=== PATIENT | male | born 1935 | race Caucasian/White ===

== ENCOUNTER 2017-02-12 16:24 | Inpatient (IN) | payer OTHER ==
[~2017-02-12] VITALS: Ht 182.9 cm; Wt 81.6 kg
[2017-02-12 16:30] VITALS: BP 113/48
[2017-02-12] MEDS ORDERED: NACL 0.9% 500 ML IV ONE (16:40)
--- NOTE | 2017-02-12 16:45 | NUR ---
[facility] PATIENT PRESENTS TO ED WITH SOB . [facility] BEING [facility] [place] [facility] DEN[place] PATIENT FOR 02 SAT BEING TOO LOW, [facility] TRIED BRINGING PATIENT BACK TO [place] BUT DENIED THERE TOO FOR 02 BEING TOO LOW. [facility] BROUGHT PATIENT TO ED. DENIES N/V/D; SKIN IS PINK/WARM/DRY; AAOX3 WITH EVEN AND UNSTEADY GAIT; LUNGS DIMINISHED BL; HR EVEN AND REGULAR; PT DENIES ANY FEVER, CP, SOB, OR COUGH AT THIS TIME; PATIENT STATES PAIN OF 2/10 AT THIS TIME; VSS; PATIENT POSITIONED FOR COMFORT; HOB ELEVATED; BEDRAILS UP X2; BED DOWN. ER MD MADE AWARE OF PT STATUS.
--- NOTE | 2017-02-12 17:05 | NUR ---
PATIENT REFUSING ABG PROCEDURE DR. ARMOND WHITLOCK AWARE DAHLIA/RN NOTIFIED
[2017-02-12] MEDS ORDERED: ONDA4TAB IVP (17:35)
[2017-02-12] MEDS ORDERED: ACET-2869 GT (17:35)
[2017-02-12] MEDS ORDERED: FURO-572 IVP (17:35)
[2017-02-12] MEDS ORDERED: ATOR10TA51 GT (17:35)
[2017-02-12] MEDS ORDERED: CITA20TA15 GT (17:35)
[2017-02-12] MEDS ORDERED: LOV40I SUBQ (17:35)
[2017-02-12] MEDS ORDERED: METF850T GT (17:35)
[2017-02-12] MEDS ORDERED: ACET-2619 GT (17:35)
[2017-02-12] MEDS ORDERED: PRIM250T70 GT (17:35)
[2017-02-12] MEDS ORDERED: PIPE1PDS26 IV (17:35)
[2017-02-12] MEDS ORDERED: HYDR2TAB20 IVP (17:35)
[2017-02-12] MEDS ORDERED: CARV3.12 GT (17:35)
[2017-02-12] MEDS ORDERED: FENT50TD45 TD (17:35)
[2017-02-12] MEDS ORDERED: [UNRECOGNIZED DRUG - CODE] IV (17:35)
[2017-02-12] MEDS ORDERED: HYDR2TAB6 IVP (17:35)
[2017-02-12] MEDS ORDERED: LISI30TA6 GT (17:35)
[2017-02-12] MEDS ORDERED: GABA400C GT (17:35)
[2017-02-12] MEDS ORDERED: MIC5 GT (17:35)
[2017-02-12] MEDS ORDERED: CLON-276 GT (17:35)
[2017-02-12] MEDS ORDERED: ALBU3SOL21 IH (17:35)
[2017-02-12] MEDS ORDERED: CLOP75TA55 GT (17:35)
[2017-02-12] MEDS ORDERED: ATI.5 GT (17:35)
[2017-02-12] MEDS ORDERED: SLIDE SUBQ (18:26)
--- NOTE | 2017-02-12 18:45 | NUR ---
PT CURRENTLY RESTING WITH OU CLOSED, NO GRIMACE, NO MOAN---NO ACCESSORY MUSCLE USE NOTED---COOL MIST TO TRACH
--- NOTE | 2017-02-12 18:55 | NUR ---
RECEIVED REPORT FROM ER PER BELA RN, REGARDING PT ADMISSION TO [facility].
--- NOTE | 2017-02-12 19:03 | NUR ---
PT STABLE, TRANSFER TO TELE 116
--- NOTE | 2017-02-12 19:05 | NUR ---
Patient will be admitted to care of DR JUAREZ. Admited to . Will go to room. Belongings list completed. Report to .
[2017-02-12] MEDS ORDERED: NACL 0.9% 1,000 ML IV SCH (19:08)
[2017-02-12] MEDS ORDERED: ACETAMINOPHEN 325 MG TAB PO PRN (19:10)
[2017-02-12] MEDS ORDERED: ONDANSETRON 4 MG/2 ML VIAL IVP PRN (19:10)
[2017-02-12] MEDS ORDERED: HYDROcodone/APAP 5/325 MG 1 TAB TAB PO PRN (19:10)
[2017-02-12] MEDS ORDERED: ALBUTEROL SULFATE/IPRATROPIU 3 ML SOL IH PRN (19:15)
--- NOTE | 2017-02-12 19:19 | NUR ---
1700 INFORMED BY ED THAT PT ENROUTE FROM [facility] TO [facility] AND UPON ARRIVAL AT [facility] PT WAS DENIED ADMISSION DUE TO STATED LOW O2 SAT. [facility] IS AN LTAC AND DOES NOT HAVE AN ED AND REFUSED TO TAKE PT BACK PT ALREADY DISCHARGED FROM THE FACILITY. CALL PLACED TO [facility] [phone] AND SPOKE WITH WENDY IN ADMISSIONS. PER WENDY PT HAD BEEN ACCEPTED TO THE FACILITY FOR ADMISSION BASED ON REPORT FROM [facility] THAT PT HAD TRACH TO [facility] AND WAS ON O2 AT 28% BUT ON ARRIVAL TO THEIR FACILITY PT WAS ON O2 AT 10 LITER FLOW AND THEY COULD NOT ACCOMMODATE A 10 L FLOW RATE, THEREFORE, PT COULD NOT SAFELY BE ADMITTED AND THEY REQUESTED THAT [facility] RETURN PT TO [facility] BUT [facility] INDICATED THEY COULD NOT ACCEPT PT BACK ONCE DISCHARGED SO PT WAS SENT TO [facility]. PER WENDY IF AND WHEN PT'S O2 REQUIREMENT CAN BE LOWERED TO A LEVEL THEY CAN ACCOMMODATE THEY WILL ACCEPT THE PT FOR ADMISSION.
[2017-02-12] MEDS ORDERED: DEXTROSE 50% 50 ML SYR IVP PRN (19:25)
--- NOTE | 2017-02-12 19:25 | NUR ---
RECEIVED REPORT FROM STONE CHAVEZ WHO RECEIVED REPORT FOR THIS PT WHO IM ADMITTING. ADMITTING 81 YEAR OLD MALE PT. PT IS NON VERBAL. PT AOX3. PT HAS A WHITE BOARD TO COMMUNICATE BUT PT IS CONFUSED AT TIMES. HAS NG TUBE PATENT AND INTACT. PT HAS A TRACHEOSTOMY RECEIVING 02 10L FIO2 AT 40%, PT 02 SAT AT 94%. PT HAS A BRICEÑO CATHETER IN PLACE. PT HAS A RIGHT UPPER ARM PICC LINE. PT IS BEDBOUND. PT'S SKIN IS INTACT. SAFETY/FALL RISK MEASURES IN PLACE. ORIENTED PT TO ROOM AND SURROUNDINGS, WILL CONTINUE TO MONITOR PT. WILL CONTINUE TO MONITOR PT. Addendum: 02/12/17 at 2018 by Chary Hernandez RN PT HAS A PACED MAKER.
--- NOTE | 2017-02-12 19:30 | NUR ---
PT HAS A DRESSING DRY AND INTACT ON LEFT ANTERIOR THIGH DUE TO A SURGICAL PROCEDURE ACCORDING TO NOTES ON CHART. PT REFUSED TO LET ME ASSESS WOUND. WILL CONTINUE TO MONITOR PT.
--- NOTE | 2017-02-12 19:40 | NUR ---
PT NON VERBAL, PT COMMUNICATES WRITING THROUGH A WHITE BOARD.
--- NOTE | 2017-02-12 20:30 | NUR ---
PT HAS SCDS ON. WILL CONTINUE TO MONITOR PT.
[2017-02-12] MEDS: BLOOD GLUCOSE MONITORING 1 DEV DEV FS SCH (20:40)
--- NOTE | 2017-02-12 20:41 | NUR ---
INFORMATION SERVICES CONSULTANT AT BEDSIDE.
--- NOTE | 2017-02-12 20:55 | NUR ---
PT REFUSED TO HAVE ULTRASOUND DONE. WILL CONTINUE TO MONITOR PT.
--- NOTE | 2017-02-12 22:00 | NUR ---
PT TURNED/REPOSITIONED. WILL CONTINUE TO MONITOR PT.
--- NOTE | 2017-02-12 22:30 | NUR ---
PT ASKING TO NOTIFY HIS THAT HE IS AT THIS HOSPITAL. CALLED HIS VENUS TO NOTIFY HER AND SHE STATED THAT SHE WAS ALREADY AWARE OF PT BEEN HERE. WILL LET PT KNOW. WILL CONTINUE TO MONITOR PT.
--- NOTE | 2017-02-12 23:02 | NUR ---
PT COMPLAINING OF A HEADACHE PAIN LEVEL 6/10. VS STABLE, WILL MEDICATE ORDERED.
[2017-02-12] MEDS ORDERED: PIPERACILLIN/TAZOBACTAM 3.375 GM VIAL IV ONE (23:04)
[2017-02-12] MEDS: MORPHINE SULFATE 2 MG/ML SYR IVP PRN (23:05)
[2017-02-12] MEDS: PIPER/TAZO 3.375GM/D5W PREMIX 50 ML IV SCH (23:08)
--- NOTE | 2017-02-12 23:18 | NUR ---
0000 ANTIBIOTIC INFUSING AT THIS TIME.
--- NOTE | 2017-02-12 23:30 | NUR ---
LOCK OPERATOR CALLED TO NOTIFY ME THAT PT'S LABS HAVE TO BE CANCELLED BECAUSE PT REFUSED TODAY 02/12/17. CALLED DR. GORDON TO NOTIFY THEM ABUT CANCELLING THEM. AWAITING GANG WORKER.
--- NOTE | 2017-02-12 23:45 | NUR ---
PT TURNED AND REPOSITIONED. PT CHANGED. PT HAS A LARGE BROWN SOFT BOWEL MOVEMENT. WILL CONTINUE TO MONITOR PT.
[2017-02-13] VITALS: BP 139/72
--- NOTE | 2017-02-13 | NUR ---
PT TURNED AND REPOSITIONED. CALL LIGHT WITHIN REACH.
--- NOTE | 2017-02-13 00:10 | NUR ---
PAGED DR. JUAREZ FOR THE SECOND TIME TO NOTIFY HIM THAT X RAY EXAMINER OF AIRCRAFT NEEDS TO HAVE THE LAB ORDERS THAT PT REFUSED CANCELLED. AWAITING CONDITIONING ROOM WORKER BACK.
--- NOTE | 2017-02-13 00:19 | NUR ---
TALKED TO ANAM FROM ER TO ASK FOR PT'S EKG THAT WAS ORDERED IN ER TO HAVE IN PT'S CHART. ANAM STATED THAT SHE WOULD GET BACK TO ME.
--- NOTE | 2017-02-13 00:47 | NUR ---
PAGESha DINERO WHO IS COVERING FOR DR. JUAREZ TO NOTIFY THEM ABOUT CANCELLING LAB ORDERS THAT PT HAS REFUSED EARLIER. AWAITING FISHER GILL NET BACK.
--- NOTE | 2017-02-13 01:00 | NUR ---
TALKED TO DR. 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 WILL CONTINUE TO MONITOR PT. Addendum: 02/13/17 at 0105 by Chary Hernandez RN AWARE THAT PT REFUSED LABS AND BLE ULTRASOUND.
--- NOTE | 2017-02-13 02:00 | NUR ---
PT TURNED AND REPOSITIONED. CALL LIGHT WITHIN REACH.
--- NOTE | 2017-02-13 02:07 | NUR ---
PT COMPLAINING OF HEADACHE 10. VS STABLE, WILL MEDICATE ORDERED.
[2017-02-13] MEDS: MORPHINE SULFATE 2 MG/ML SYR IVP PRN ×6 (02:10→23:22)
--- NOTE | 2017-02-13 03:40 | NUR ---
I TRIED TO CONVINCED PT TO LET ME ASSESS HIS WOUND ON LEFT TIGHT; BUT PT STILL REFUSES. GILDA BAUMAN WITNESSED AT BEDSIDE.
[2017-02-13 04:00] VITALS: BP 140/69
--- NOTE | 2017-02-13 04:00 | NUR ---
PT REFUSED TO BE REPOSITIONED. FOREST SUPERVISOR CRISSY WITNESS AT BEDSIDE.
--- NOTE | 2017-02-13 04:05 | NUR ---
PT RECEIVING BREATHING TREATMENT AT THIS TIME.
--- NOTE | 2017-02-13 04:10 | NUR ---
I PAGED DR. DINERO TO NOTIFY HER THAT PT IS BEEN COMPLAINING OF HEADACHE AND CHAIN PAIN. I TOLD THAT I HAD MEDICATED PT 2 HOURS AGO AND THE PAIN MEDICATION THE PT IS ASKING MORPHINE IS SCHEDULED EVERY FOUR HOURS. SAID SHE WOULD CHANGE THE ORDER TO EVERY THREE HOURS INSTEAD. WILL CONTINUE TO MONITOR PT.
[2017-02-13] MEDS ORDERED: MORPHINE SULFATE 2 MG/ML SYR IVP SCH (04:30)
--- NOTE | 2017-02-13 04:48 | NUR ---
WAITING ON DR. DINERO TO PUT IN ORDERS FOR PAIN MEDICATION. PT STABLE, PT AWARE THAT WE ARE WAITING ON ORDERS.
--- NOTE | 2017-02-13 04:59 | NUR ---
DR. DINERO PUT IN THE WRONG ORDERS, PAGED HER AGAIN. AWAITING FOR DR. MARTINEZ PUT IN RIGHT ORDERS FOR PAIN MED. PT AWARE, PT STABLE AT THIS TIME.
--- NOTE | 2017-02-13 05:07 | NUR ---
STILL WAITING ON DR. DINERO TO PUT IN THE RIGHT ORDERS FOR PAIN MEDICATION. PHARMACY CAN NOT VERIFY WITHOUT HAVING RIGHT FREQUENCY. CHARGE NURSE AWARE. I WAS TOLD I CAN NOT PUT IN THE ORDER MY SELF. HAVE TO WAIT. PT STATES THAT HE ONLY WANTS "PAIN SHOT".
--- NOTE | 2017-02-13 05:26 | NUR ---
STILL WAITING FOR DR. DINERO TO FIX PAIN MED ORDER. PT AWARE. PT WANTS [facility] FOR NOW. WILL CONTINUE TO MONITOR PT.
[2017-02-13] MEDS ORDERED: PIPERACILLIN/TAZOBACTAM 3.375 GM VIAL IV ONE (05:28)
[2017-02-13] MEDS: HYDROcodone/APAP 5/325 MG 1 TAB TAB GT PRN ×2 (05:29→10:33)
[2017-02-13] MEDS: PIPER/TAZO 3.375GM/D5W PREMIX 50 ML IV SCH ×3 (05:33→17:00)
--- NOTE | 2017-02-13 05:51 | NUR ---
PT ASKED TO HAVE HIS SCDS REMOVED. HE STATED HE DID NOT WANT THEM ON.
[2017-02-13] MEDS: BLOOD GLUCOSE MONITORING 1 DEV DEV FS SCH ×4 (06:08→21:04)
--- NOTE | 2017-02-13 06:26 | NUR ---
PT REFUSED TO BE REPOSITIONED/TURNED. SIZING END BANDER GILDA WITNESS AT BEDSIDE.
--- NOTE | 2017-02-13 06:40 | NUR ---
I ASKED PT AGAIN TO LET ME ASSESS HIS DRESSING ON LEFT LEFT LEG AND PT REFUSES. I ALSO TRIED TO PUT ON SCDS BACK; HOWEVER PT REFUSES.
[2017-02-13] MEDS: ALBUTEROL SULFATE/IPRATROPIU 3 ML SOL IH SCH ×5 (07:10→23:38)
--- NOTE | 2017-02-13 07:24 | NUR ---
PT SUCTIONED OBTAINED MODERATE AMOUNT OF THICK PALE YELLOW SECRETIONS,AIRWAY IS PATENT AND TRACH IS SECURE. PT TOLERATED SUCTIONING WELL WITH NO ADVERSE REACTIONS.
--- NOTE | 2017-02-13 07:35 | NUR ---
ENDORSED PT IN STABLE CONDITION TO RN BRITNEY.
--- NOTE | 2017-02-13 07:36 | NUR ---
PT ALERT AND RESPONSIVE, NON VERBAL, WITH TRACH TO O2 AT 40% FIO2, NO SIGNS OF ACUTE DISTRESS. OFFLOAD TO PRESSURE AREAS, TURN AND REPOSITIONED, ELEVATED HOB AT LEAST 30 DEGREES. NO SIGNS OF ANY BOWEL/BLADDER DISCOMFORT, GTUBE INTACT AND PATENT, NO RESIDUAL, BRICEÑO CATHETER INTACT AND NOTED 50ML OF LIGHT LES COLORED URINE. C/O HEAD ACHE /10, TO MEDICATE ORDERED, PLACED ON A COMFORTABLE POSITION. ALL NEEDS ATTENDED, SAFETY PRECAUTIONS MAINTAINED. CALL LIGHT WITHIN REACH.
[2017-02-13 07:48] VITALS: BP 145/76
[2017-02-13] MEDS ORDERED: FUROSEMIDE 40 MG/4 ML VIAL IVP SCH (08:00)
--- NOTE | 2017-02-13 08:00 | NUR ---
PT TURNED AND REPOSITIONED, MOUTH AND TRACH CARE RENDERED. PLACED ON A COMFORTABLE POSITION. CONTINUE TO MONITOR.
[2017-02-13] MEDS: LACTOBACILLUS RHAMNOSUS GG 1 EACH CAP PO SCH (08:11)
[2017-02-13] MEDS: LORazepam 0.5 MG TAB PO PRN (08:11)
[2017-02-13] MEDS ORDERED: ALTEPLASE 2 MG VIAL MC SCH (08:30)
--- NOTE | 2017-02-13 08:52 | NUR ---
PATIENT HAS BEEN SCREENED AND CATEGORIZED MODERATE NUTRITION RISK. PATIENT WILL BE SEEN WITHIN 3-5 DAYS OF ADMISSION. 02/15/17-02/17/[address] Addendum: 02/16/17 at [address] [facility] CONSULT RECEIVED ON 02/15/17-1628 FOR TUBE FEEDING. PATIENT HAS BEEN RE-SCREENED AND CATEGORIZED HIGH NUTRITION RISK. PATIENT WILL BE SEEN WITHIN 1-2 DAYS OF CONSULT. 02/16/17-02/17/17
--- NOTE | 2017-02-13 08:57 | NUR ---
PT REFUSED IMAGING TESTS SCHEDULED TODAY. RISKS AND BENEFITS EXPLAINED. AWARE.
--- NOTE | 2017-02-13 10:00 | NUR ---
UNABLE TO OBTAIN BLOOD RETURN AFTER CATHFLO ADMINISTRATION FROM THE PICC LINE. DR MALAVE AWARE. LAB TO DO VENIPUNCTURE LATER.
--- NOTE | 2017-02-13 10:00 | NUR ---
PT TURNED AND REPOSITIONED, PLACED ON A COMFORTABLE POSITION. CONTINUE TO MONITOR.
[2017-02-13 12:00] VITALS: BP 132/77
--- NOTE | 2017-02-13 12:00 | NUR ---
PT TURNED AND REPOSITIONED, PLACED ON A COMFORTABLE POSITION. CONTINUE TO MONITOR.
--- NOTE | 2017-02-13 12:02 | NUR ---
AEROSOL WATER REPLACED WITH NEW WATER. PT SUCTIONED OBTAINED MODERATE AMOUNT OF THICK YELLOW SECRETIONS,AIRWAY IS PATENT TRACH IS SECURE.
--- NOTE | 2017-02-13 12:18 | NUR ---
ABLE TO OBTAIN BLOOD ON PT'S RIGHT UPPER ARM PICC LINE. SENT TO LAB. AWARE.
[2017-02-13 13:21] LABS: HEMATOCRIT 29.4 % (36-52); HEMOGLOBIN 9.5 g/dL (12.0-18.0); MEAN CORPUSCULAR HEMOGLOBIN 26 pg (27-31); MEAN CORPUSCULAR HGB CONC 32 g/dL (33-37); MEAN CORPUSCULAR VOLUME 80 fL (80-94); PLATELET COUNT (AUTO) 408 K/uL (140-450); WHITE BLOOD COUNT (AUTO) 21.1 K/uL (4.8-10.8)
[2017-02-13 13:42] LABS: BAND % (MANUAL) 4 % (0-8); LYMPHOCYTES % (MANUAL) 28 % (20-46); MONOCYTES % (MANUAL) 8 % (5-12); NEUTROPHILS % (MANUAL) 60 (43-65)
--- NOTE | 2017-02-13 14:00 | NUR ---
PT TURNED AND REPOSITIONED, PLACED ON A COMFORTABLE POSITION. CONTINUE TO MONITOR.
[2017-02-13 14:25] LABS: CALCIUM 9.4 mg/dL (8.5-10.1); CARBON DIOXIDE 34.3 mmol/L (21-32); CHLORIDE 97 mmol/L (98-107); CREATININE 0.8 mg/dL (0.6-1.3); GLUCOSE 116 mg/dL (74-106); POTASSIUM 3.3 mmol/L (3.5-5.1); SODIUM SERUM 138 mmol/L (136-145); UREA NITROGEN, BLOOD 31 mg/dL (7-18)
[2017-02-13 14:29] LABS: MAGNESIUM 1.2 mg/dL (1.8-2.4); PHOSPHORUS 3.9 mg/dL (2.5-4.9)
--- NOTE | 2017-02-13 14:44 | NUR ---
Social Service Note: Per Clarence Cevallos from [facility] , they can accommodate patients up to 5 liters of O2. Per Jesus Manuel from [facility] , they can accommodate patients up to 5 liters of O2. Per RN Graining Press Operator Win from [facility] , they can accommodate patients up to 10 liters of O2. However, he stated they do not have any beds available at this time.
--- NOTE | 2017-02-13 15:00 | NUR ---
MD AWARE OF CURRENT LABS, CBC AND BMP. CONTINUE TO MONITOR.
[2017-02-13 16:00] VITALS: BP 122/71
--- NOTE | 2017-02-13 16:00 | NUR ---
PT TURNED AND REPOSITIONED, PLACED ON A COMFORTABLE POSITION. CONTINUE TO MONITOR.
--- NOTE | 2017-02-13 16:20 | NUR ---
INNER CANNULA REPLACED WITHOUT INCIDENT. AIRWAY IS PATENT, PT SUCTIONED OBTAINED MODERATE AMOUNT OF THICK YELLOW SECRETIONS. PT IS NOT SOB AND NOT IN RESPIRATORY DISTRESS AT THIS TIME. STERILE WATER FOR CA IS AT ADEQUATE LEVEL.
--- NOTE | 2017-02-13 18:00 | NUR ---
PT TURNED AND REPOSITIONED, PLACED ON A COMFORTABLE POSITION. CONTINUE TO MONITOR
--- NOTE | 2017-02-13 18:05 | NUR ---
PT ALERT AND RESPONSIVE, NO SIGNS OF ACUTE DISTRESS. WILL ENDORSE TO ONCOMING DATABASE MANAGEMENT SPECIALIST NURSE FOR CONTINUITY OF CARE.
--- NOTE | 2017-02-13 19:30 | NUR ---
RECEIVED REPORT FROM AM NURSE. PT AOX4, NONVERBAL, ABLE TO COMMUNICATE NEEDS WITH WHITEBOARD AND MARKER. PT C/O PAIN, SEE PAIN ASSESSMENT. WILL MEDICATE ORDERED. NO CP, SOB OR S/S OF ACUTE DISTRESS. T-PIECE IN PLACE AT 10L AND 40% FIO2, SPO2 93% ON CONTINUOUS PULSE OX. WILL MEDICATE ORDERED. GTUBE PLACEMENT VERIFIED, PATENT AND INTACT. BRICEÑO CATH IN PLACE, DRAINING WELL. DRESSING TO LEFT THIGH, CLEAN DRY AND INTACT. PICC TO RIGHT UPPER ARM, ASYMPTOMATIC, PATENT AND INTACT. SALINE LOCKED. DISCUSSED AND REVIEWED PLAN OF CARE WITH PT, PT WRITES "OK" ON WHITEBOARD. SAFETY MEASURES ENSURED. CALL LIGHT WITHIN REACH. WILL CONTINUE TO MONITOR.
[2017-02-13 20:00] VITALS: BP 131/64
--- NOTE | 2017-02-13 20:00 | NUR ---
PT TURNED AND REPOSITIONED, OFFLOAD PRESSURE SITES. PT TOLERATED WELL. WILL CONTINUE TO MONITOR.
--- NOTE | 2017-02-13 20:15 | NUR ---
VS NOTED. TEMP 99.5, COOLING MEASURES AND ICE PACKS ENSURED. ADMINISTERED TYLENOL WITH EDUCATION THROUGH [email or web address]. PT NONVERBAL, WRITES "OK" ON NOTEPAD. PT TOLERATED WELL. BLOOD SUGAR 159, PT NPO, WILL HOLD INSULIN COVERAGE. CONDITION STABLE. SAFETY MEASURES ENSURED. CALL LIGHT WITHIN REACH. WILL CONTINUE TO MONITOR.
[2017-02-13] MEDS: KCL 20 MEQ/WATER INJ PREMIX 100 ML IV SCH ×2 (20:50→22:24)
[2017-02-13] MEDS ORDERED: MAG SULF 2000 MG/WATER PREMIX 50 ML IV SCH (20:50)
--- NOTE | 2017-02-13 20:50 | NUR ---
MADE DR GABRIEL AWARE OF MG 1.2 AND POTASSIUM 3.3, ORDERS PENDING AND WILL CARRY OUT.
--- NOTE | 2017-02-13 21:06 | NUR ---
EXPLAINED THE NEED FOR IV MAGNESIUM AND IV POTASSIUM, PT WRITES ON "OK" ON WHITEBOARD. ADMINISTERED IV MAGNESIUM WITH EDUCATION. IVPB INFUSING WELL. ALL NEEDS MET. CONDITION STABLE. SAFETY MEASURES ENSURED.
--- NOTE | 2017-02-13 22:00 | NUR ---
PT TURNED AND REPOSITIONED, OFFLOAD PRESSURE SITES. PT TOLERATED WELL. WILL CONTINUE TO MONITOR.
--- NOTE | 2017-02-13 22:30 | NUR ---
PT WROTE ON WHITEBOARD, "MY CHEST IS BURNING OR FREEZING." EXPLAINED THAT IV MAGNESIUM MAY FEEL SOME DISCOMFORT. PT REFUSED DESPITE EDUCATION, WROTE ON WHITEBOARD, "STOP." IV MAG STOPPED AND PICC SALINE LOCKED. WILL REASSESS LATER.
--- NOTE | 2017-02-13 23:22 | NUR ---
PT C/O PAIN. SEE PAIN ASSESSMENT. ADMINISTERED PAIN MED WITH EDUCATION. EXPLAINED THE NEED TO CONTINUE IV MAGNESIUM AND NEED FOR IV POTASSIUM REPLACEMENT. PT REFUSED DESPITE EDUCATION , WROTE ON HIS WHITEBOARD, "NO" AND GESTURED WAVING BOTH HIS HANDS. WILL CONTACT .
--- NOTE | 2017-02-13 23:44 | NUR ---
WEANED TO 30% FIO2.
[2017-02-14] VITALS: BP 139/77
--- NOTE | 2017-02-14 | NUR ---
PT TURNED AND REPOSITIONED, OFFLOAD PRESSURE SITES. PT TOLERATED WELL. WILL CONTINUE TO MONITOR.
--- NOTE | 2017-02-14 | NUR ---
PAGED DR GALLARDO, VICE PRESIDENT OF TALENT ACQUISITION FOR DR JUAREZ. MADE MD AWARE OF PT REFUSING IVPB MAG AND IVPB POTASSIUM 20MEQ AND PT'S COMPLAINT OF BURNING/FREEZING WHEN IVPB MAG IS INFUSING. MD INSTRUCTED TO "ADMINISTER THE MAG AT A REALLY SLOW RATE." STATED "IF THE PT STILL REFUSED, WE'LL CHECK THE LABS AGAIN TOMORROW." WILL CARRY OUT INSTRUCTIONS.
--- NOTE | 2017-02-14 00:30 | NUR ---
PT REFUSED IVPB MAG AND IVPB POTASSIUM DESPITE EDUCATION. PT WROTE ON WHITEBOARD, "NO, I WANT TO SLEEP, STOP ASKING." ASKED PT IF WE CAN DO THE ULTRASOUND BLE VENOUS, BLE ARTERIAL, CHEST/MEDIASTINUM IN THE MORNING. PT WROTE, "WE SHALL SEE." CONDITION STABLE. ALL NEEDS MET. SAFETY MEASURES ENSURED. CALL LIGHT WITHIN REACH.
[2017-02-14] MEDS: PIPER/TAZO 3.375GM/D5W PREMIX 50 ML IV SCH ×5 (00:54→23:49)
--- NOTE | 2017-02-14 02:00 | NUR ---
PT TURNED AND REPOSITIONED, OFFLOAD PRESSURE SITES. PT TOLERATED WELL. WILL CONTINUE TO MONITOR.
[2017-02-14] MEDS: MORPHINE SULFATE 2 MG/ML SYR IVP PRN ×7 (02:50→21:41)
--- NOTE | 2017-02-14 02:50 | NUR ---
PT C/O PAIN. SEE PAIN ASSESSMENT. ADMINISTERED PAIN MEDICATION ORDERED. PT TOLERATED WELL. PT COUGHING INTERMITTENTLY, SAT 90%. PT SUCTIONED, SAT 94%. WILL CALL RT FOR SCHEDULED BREATHING TX.
[2017-02-14] MEDS: ALBUTEROL SULFATE/IPRATROPIU 3 ML SOL IH SCH ×6 (03:05→22:40)
[2017-02-14 04:00] VITALS: BP 149/84
--- NOTE | 2017-02-14 04:00 | NUR ---
PT TURNED AND REPOSITIONED, OFFLOAD PRESSURE SITES. PT TOLERATED WELL. WILL CONTINUE TO MONITOR.
[2017-02-14] MEDS: HYDROcodone/APAP 5/325 MG 1 TAB TAB GT PRN ×2 (06:31→06:45)
[2017-02-14] MEDS: BLOOD GLUCOSE MONITORING 1 DEV DEV FS SCH ×4 (06:40→21:41)
[2017-02-14 06:44] LABS: BASOPHILS # (AUTO) 0.1 K/uL (0.00-0.22); BASOPHILS % (AUTO) 0.5 % (0.0-2.0); EOSINOPHILS # (AUTO) 0.2 K/uL (0-0.4); HEMATOCRIT 30.5 % (36-52); HEMOGLOBIN 9.9 g/dL (12.0-18.0); LYMPHOCYTES # (AUTO) 3.2 K/uL (2.0-11.5); LYMPHOCYTES % (AUTO) 21.4 % (20.5-51.1); MEAN CORPUSCULAR HEMOGLOBIN 26 pg (27-31); MEAN CORPUSCULAR HGB CONC 33 g/dL (33-37); MEAN CORPUSCULAR VOLUME 80 fL (80-94); MONOCYTES # (AUTO) 1.3 K/uL (0.8-1.0); MONOCYTES % (AUTO) 8.9 % (1.7-9.3); NEUTROPHILS # (AUTO) 10.2 K/uL (1.8-7.7); NEUTROPHILS % (AUTO) 68.2 % (42.2-75.2); PLATELET COUNT (AUTO) 406 K/uL (140-450); RED BLOOD CELL COUNT(AUTO) 3.81 MIL/uL (4.20-6.10); WHITE BLOOD COUNT (AUTO) 15.1 K/uL (4.8-10.8)
[2017-02-14 06:46] LABS: ANION GAP 10.1 (8-16); CALCIUM 9.5 mg/dL (8.5-10.1); CARBON DIOXIDE 35.7 mmol/L (21-32); CHLORIDE 100 mmol/L (98-107); CREATININE 0.9 mg/dL (0.6-1.3); GLUCOSE 135 mg/dL (74-106); POTASSIUM 3.8 mmol/L (3.5-5.1); SODIUM SERUM 142 mmol/L (136-145); UREA NITROGEN, BLOOD 28 mg/dL (7-18)
[2017-02-14 06:52] LABS: MAGNESIUM 1.7 mg/dL (1.8-2.4); PHOSPHORUS 3.9 mg/dL (2.5-4.9)
--- NOTE | 2017-02-14 07:21 | NUR ---
RCV'D PT ON CA 30%. PT HAS A PORTEX 7 TRACH. TRACH IS IN PLACE AND SECURED. STOMA IS CLEAN. PT IS AWAKE WITH NO SOB OR DISTRESS NOTED. HHN TX GIVEN. WILL CONTINUE TO MONITOR.
--- NOTE | 2017-02-14 07:23 | NUR ---
CONDITION STABLE. ENDORSED PLAN OF CARE TO AM NURSE.
--- NOTE | 2017-02-14 07:24 | NUR ---
PT ALERT AND RESPONSIVE, NON VERBAL, WITH TRACH TO O2 AT 30% FIO2, NO SIGNS OF ACUTE DISTRESS. OFFLOAD TO PRESSURE AREAS, TURN AND REPOSITIONED, ELEVATED HOB AT LEAST 30 DEGREES. NO SIGNS OF ANY BOWEL/BLADDER DISCOMFORT, GTUBE INTACT AND PATENT, NO RESIDUAL, BRICEÑO CATHETER INTACT AND NOTED 75ML OF LIGHT LES COLORED URINE. NO C/O PAIN AT THIS TIME. PLACED ON A COMFORTABLE POSITION. ALL NEEDS ATTENDED, SAFETY PRECAUTIONS MAINTAINED. CALL LIGHT WITHIN REACH.
[2017-02-14 07:49] VITALS: BP 141/74
--- NOTE | 2017-02-14 09:00 | NUR ---
PT TURNED AND REPOSITIONED, MOUTH AND TRACH CARE RENDERED. PLACED ON A COMFORTABLE POSITION. CONTINUE TO MONITOR.
[2017-02-14] MEDS: LACTOBACILLUS RHAMNOSUS GG 1 EACH CAP PO SCH (09:12)
[2017-02-14] MEDS: LORazepam 0.5 MG TAB PO PRN (09:12)
--- NOTE | 2017-02-14 10:00 | NUR ---
PT TURNED AND REPOSITIONED, PLACED ON A COMFORTABLE POSITION. CONTINUE TO MONITOR.
[2017-02-14 11:55] VITALS: BP 143/74
--- NOTE | 2017-02-14 12:00 | NUR ---
PT TURNED AND REPOSITIONED, PLACED ON A COMFORTABLE POSITION. CONTINUE TO MONITOR.
--- NOTE | 2017-02-14 14:00 | NUR ---
PT TURNED AND REPOSITIONED, PLACED ON A COMFORTABLE POSITION. CONTINUE TO MONITOR.
--- NOTE | 2017-02-14 15:00 | NUR ---
PT TURNED AND REPOSITIONED, MOUTH AND TRACH CARE RENDERED. PLACED ON A COMFORTABLE POSITION. CONTINUE TO MONITOR.
[2017-02-14] MEDS: INSULIN LISPRO SLIDING SCALE 100 UNITS/ML VIAL SUBQ PRN ×2 (15:45→21:46)
[2017-02-14 16:00] VITALS: BP 153/69
--- NOTE | 2017-02-14 16:00 | NUR ---
PT RESTING WELL IN BED, GT UBE INTACT AND PATENT NO RESIDUAL. STARTED ON TUBE FEEDING ORDERED NUTR PULMONARE AT 50ML/HR WITH H2O FLUSH 50ML Q6H. PT TOLERATING WELL. CONTINUE TO MONITOR.
--- NOTE | 2017-02-14 16:00 | NUR ---
PT TURNED AND REPOSITIONED, PLACED ON A COMFORTABLE POSITION. CONTINUE TO MONITOR.
--- NOTE | 2017-02-14 17:10 | NUR ---
TRACH CARE DONE WITHOUT INCIDENT. CHANGED PORTEX 6 INNER CANNULA, GAUZE; BREEN. TRACH TIE DIDNT NEED TO BE CHANGED AT THIS TIME. RN BRITNEY AT BEDSIDE. HUMIDIFICATION WATER CHANGED. PT STILL ON 30% CA. WILL CONTINUE TO MONITOR.
--- NOTE | 2017-02-14 18:00 | NUR ---
PT TURNED AND REPOSITIONED, PLACED ON A COMFORTABLE POSITION. CONTINUE TO MONITOR.
--- NOTE | 2017-02-14 18:20 | NUR ---
PT RESTING WELL, NO SIGNS OF ACUTE DISTRESS. WILL ENDORSE TO ONCOMING GROUP DYNAMICS INSTRUCTOR NURSE FOR CONTINUITY OF CARE.
--- NOTE | 2017-02-14 19:43 | NUR ---
RECEIVED BEDSIDE REPORT FROM BRITNEY RN. PATIENT IS AWAKE, ALERT, AND NONVERBAL. PATIENT IS ABLE TO MAKE NEEDS KNOWN BY WRITING ON WHITE BOARD WITH MARKER. PATIENT IS TRACH TO T-PIECE AND RECEIVING HUMIDIFIED OXYGEN AT FIO2 30%. NO SIGNS OF RESPIRATORY DISTRESS OR SOB NOTED. THERE IS RIGHT UPPER ARM SINGLE LUMEN PICC IN PLACE. THERE IS A G-TUBE PRESENT. PATIENT IS RECEIVING NUTREN PULMONARY AT 50 ML/HR. THERE IS A BRICEÑO CATHETER IN PLACE DRAINING TO GRAVITY. SCDS ARE PRESENT, BUT PATIENT REFUSES TO WEAR THEM AT THIS TIME. VITALS ARE WNL. HOB AT 30 DEGREES WITH BED IN LOW POSITION. WILL CONTINUE TO MONITOR PATIENT.
[2017-02-14 20:00] VITALS: BP 150/75
--- NOTE | 2017-02-14 21:35 | NUR ---
GLORIA EXCELLENCE CONSULTANT AND RAMONE RICKA AT BEDSIDE FOR PM CARE. PATIENT REPOSITIONED FOR COMFORT. NO SIGNS OF DISTRESS OR SOB NOTED. CONTINUE TO MONITOR.
--- NOTE | 2017-02-14 21:47 | NUR ---
BLOOD SUGAR IS 202. PATIENT REFUSED 4 UNITS OF HUMALOG FOR INSULIN COVERAGE. WILL CONTINUE TO MONITOR PATIENT.
--- NOTE | 2017-02-14 21:55 | NUR ---
AVTAR KAN, WHO IS NAPHTHALENE OPERATOR FOR DR. JUAREZ. WILL WAIT FOR CALL BACK.
--- NOTE | 2017-02-14 21:58 | NUR ---
SPOKE TO DR. KAN. INFORMED MD THAT PATIENT'S LAST ACCUCHECK IS 202 AND PATIENT REFUSED INSULIN BASED PER SLIDING SCALE. PATIENT WROTE ON HIS PERSONAL WHITE BOARD THAT HIS DIABETES IS MANAGED BY HOME MEDICATIONS. INFORMED DR. KAN SINCE ADMISSION ON 02/12/17, PATIENT'S HOME MEDICATIONS WERE NOT RECONCILED AND CONTINUED HERE IN MST. DR. KAN ASKED WHICH MEDICATIONS PATIENT RECEIVES FOR HX DIABETES AND INFORMED MD THAT PATIENT TAKES GLYBURIDE 5MG GT BIDAC AND METFORMIN HCL 850MG TABLET. DR. KAN STATED HE WILL PUT IN NEW ORDERS FOR MORNING MEDICATION ADMINISTRATION FOR DIABETES MANAGEMENT. WILL ENDORSE TO DAY SHIFT NURSE.
[2017-02-15] VITALS: BP 157/75
--- NOTE | 2017-02-15 | NUR ---
PATIENT RESTING COMFORTABLY IN BED. VITALS ARE STABLE. NO SIGNS OF RESPIRATORY DISTRESS NOTED. HOB AT 30 DEGREES WITH BED IN LOW POSITION. WILL CONTINUE TO MONITOR PATIENT.
[2017-02-15] MEDS: MORPHINE SULFATE 2 MG/ML SYR IVP PRN ×3 (00:48→07:41)
--- NOTE | 2017-02-15 02:00 | NUR ---
ROUNDED ON PATIENT. PATIENT RESTING COMFORTABLY IN BED WITH NO SIGNS OF ACUTE RESPIRATORY DISTRESS NOTED. HOB AT 30 DEGREES WITH BED IN LOW POSITION. WILL CONTINUE TO MONITOR PATIENT.
[2017-02-15] MEDS: ALBUTEROL SULFATE/IPRATROPIU 3 ML SOL IH SCH ×6 (03:00→22:50)
[2017-02-15 04:00] VITALS: BP 146/67
--- NOTE | 2017-02-15 04:00 | NUR ---
VITALS ARE WNL. NO SIGNS OF SOB OR DISTRESS NOTED. HOB AT 30 DEGREES WITH BED IN LOW POSITION. CALL LIGHT WITHIN PATIENT'S REACH. WILL CONTINUE TO MONITOR PATIENT.
[2017-02-15] MEDS: PIPER/TAZO 3.375GM/D5W PREMIX 50 ML IV SCH ×4 (05:13→23:39)
[2017-02-15] MEDS: HYDROcodone/APAP 5/325 MG 1 TAB TAB GT PRN (05:13)
[2017-02-15] MEDS: BLOOD GLUCOSE MONITORING 1 DEV DEV FS SCH ×4 (06:45→21:00)
[2017-02-15] MEDS: INSULIN LISPRO SLIDING SCALE 100 UNITS/ML VIAL SUBQ PRN ×3 (06:45→21:00)
--- NOTE | 2017-02-15 06:46 | NUR ---
PATIENT'S BLOOD SUGAR IS 221. PATIENT REFUSED INSULIN COVERAGE AND WANTS TO TAKE SCHEDULED MEDICATION FOR DIABETES MANAGEMENT. WILL CONTINUE TO MONITOR PATIENT.
[2017-02-15 06:49] LABS: BASOPHILS # (AUTO) 0.1 K/uL (0.00-0.22); BASOPHILS % (AUTO) 0.4 % (0.0-2.0); EOSINOPHILS # (AUTO) 0.2 K/uL (0-0.4); EOSINOPHILS % (AUTO) 1.4 % (0.0-4.0); HEMOGLOBIN 10.2 g/dL (12.0-18.0); LYMPHOCYTES # (AUTO) 2.6 K/uL (2.0-11.5); LYMPHOCYTES % (AUTO) 15.7 % (20.5-51.1); MEAN CORPUSCULAR HEMOGLOBIN 26 pg (27-31); MEAN CORPUSCULAR HGB CONC 33 g/dL (33-37); MEAN CORPUSCULAR VOLUME 80 fL (80-94); MONOCYTES # (AUTO) 1.4 K/uL (0.8-1.0); MONOCYTES % (AUTO) 8.5 % (1.7-9.3); NEUTROPHILS # (AUTO) 12.3 K/uL (1.8-7.7); PLATELET COUNT (AUTO) 426 K/uL (140-450); RED BLOOD CELL COUNT(AUTO) 3.88 MIL/uL (4.20-6.10); RED CELL DISTRIBUTION WIDTH 15.9 % (11.6-13.7); WHITE BLOOD COUNT (AUTO) 16.6 K/uL (4.8-10.8)
--- NOTE | 2017-02-15 06:55 | NUR ---
RCV'D PT ON 30% CA TRACH COLLAR. PT HAS A PORTEX 6 TRACH. TRACH IS IN PLACE AND SECURE. STOMA IS CLEAN. HHN TX GIVEN. NO SOB OR DISTRESS NOTED AT THIS TIME. SXN'D SMALL AMOUNT OF THICK YELLOW SECRETIONS. WILL CONTINUE TO MONITOR
[2017-02-15 07:08] LABS: ANION GAP 10.1 (8-16); CALCIUM 9.2 mg/dL (8.5-10.1); CARBON DIOXIDE 33.2 mmol/L (21-32); CHLORIDE 102 mmol/L (98-107); CREATININE 0.8 mg/dL (0.6-1.3); GLUCOSE 217 mg/dL (74-106); POTASSIUM 3.3 mmol/L (3.5-5.1); SODIUM SERUM 142 mmol/L (136-145); UREA NITROGEN, BLOOD 27 mg/dL (7-18)
--- NOTE | 2017-02-15 07:20 | NUR ---
RECEIVED PATIENT REPORT. PATIENT AWAKE, ALERT AND ORIENTED. PATIENT NON VERBAL AND USES WHITE BOARD AND MARKER TO COMMUNICATE. PATIENT C/O OF 10/10 GENERALIZED PAIN. WILL MEDICATE. PATIENT ON G-TUBE FEEDING. BRICEÑO CATHETER IN PLACE DRAINING YELLOW URINE. PATIENT TRACH TO VENT 02 AT 8L. PT ON PULSE OX MONITORING. O2 SATURATION AT 95%. PICC LINE NOTED TO THE RIGHT UPPER ARM. PATIENT ON TELE MONITORING. BED LOWERED WITH CALL LIGHT WITHIN REACH. WILL CONTINUE TO MONITOR
--- NOTE | 2017-02-15 07:21 | NUR ---
ENDORSED CONTINUITY OF CARE TO MOISES RITTER.
[2017-02-15 07:32] LABS: INR 1.1 (0.8-1.2); PARTIAL THROMBOPLASTIN TIME 23.7 secs (22-35.6); PROTHROMBIN TIME 11.5 secs (10.8-13.4)
--- NOTE | 2017-02-15 07:32 | NUR ---
GOT CALL FROM STONE DE LEON THAT PT HAS BLOODY SECRETIONS. CHANGED PT FROM TRACH COLLAR TO CLOSED SUCTION BREEN TO DECREASE RISK OF INFECTION. SXN'D SMALL AMOUNT OF RED BLOODY SECRETIONS. PT SPO2 IS 94% NO SOB OR DISTRESS NOTED. RN PERICORNCIS AT BEDSIDE. WILL CONTINUE TO MONITOR.
--- NOTE | 2017-02-15 07:40 | NUR ---
DR DUMONT AWARE OF PT'S BLOODY SECRETIONS. WILL CONTINUE TO MONITOR.
[2017-02-15 08:00] VITALS: BP 149/62
[2017-02-15] MEDS ORDERED: MORPHINE SULFATE 2 MG/ML SYR IVP PRN (08:05)
[2017-02-15] MEDS: LACTOBACILLUS RHAMNOSUS GG 1 EACH CAP PO SCH (09:17)
[2017-02-15] MEDS: CLOPIDOGREL 75 MG TAB GT SCH (09:17)
[2017-02-15] MEDS: CITALOPRAM 20 MG TAB GT SCH (09:17)
[2017-02-15] MEDS: metFORMIN 850 MG TAB GT SCH ×3 (09:18→17:25)
[2017-02-15] MEDS: LISINOPRIL 20 MG TAB GT SCH (09:19)
[2017-02-15] MEDS: MORPHINE SULFATE 4 MG/ML SYR IVP PRN ×2 (10:47→14:03)
--- NOTE | 2017-02-15 11:17 | NUR ---
ASKED PT IF IT IS OKAY WITH HIM TO LET ME SUCTION HIM WITH A 10 FRN CATHETER. PT AGREED. GOT SMALL AMT OF BROWN SECRETIONS. PT DID THUMPS UP THAT HE FELLS BETTER. FAMILY AT BEDSIDE AND RN MOISES. AFTER SUCTIONING I PUT BREEN BACK AND GAVE PT HHN TX. NO SOB OR DISTRESS NOTED. WILL CONTINUE TO MONITOR.
--- NOTE | 2017-02-15 11:20 | NUR ---
PATIENT SEEN BY DR DUMONT. PATIENT'S AND DAUGHTER PRESENT IN THE ROOM
[2017-02-15 12:00] VITALS: BP 143/70
[2017-02-15] MEDS: GABAPENTIN 300 MG CAP GT SCH ×2 (12:17→21:09)
[2017-02-15] MEDS: HYDROcodone/APAP 10/325 MG 1 TAB TAB PO PRN (12:34)
--- NOTE | 2017-02-15 15:00 | NUR ---
DR DUMONT INFORMED ABOUT PATIENT'S K LEVEL OF 3.3
--- NOTE | 2017-02-15 15:20 | NUR ---
TRACH CARE DONE. COULD NOT CHANGE INNER CANNULA DO TO NO INNER CANNULAS IS MST OR ICU. HHN TX GIVEN. PT ASLEEP COMFORTABLY WITH SPO2 OF 98%. NO SOB OR DISTRESS NOTED. WILL CONTINUE TO MONITOR.
[2017-02-15 16:00] VITALS: BP 121/72
--- NOTE | 2017-02-15 16:23 | NUR ---
PER LAB SPUTUM SAMPLE IS NOT ENOUGH AND PT HAS NO SECRETIONS AT THIS TIME. WILL ENDORSE TO COMING THERAPIST TO TRY AGAIN LATER.
[2017-02-15] MEDS ORDERED: POTASSIUM CHLORIDE 20% 40 MEQ/15 ML UDC GT SCH (16:30)
--- NOTE | 2017-02-15 16:30 | NUR ---
PATIENT GIVEN BED BATH. PATIENT HAD A SMALL BM. PATIENT GIVEN PERINEAL CARE. PATIENT REPOSITIONED FOR COMFORT
[2017-02-15] MEDS: HYDROmorphone 1 MG/ML AMP IVP PRN ×2 (17:25→21:10)
[2017-02-15] MEDS: glyBURIDE 5 MG TAB GT SCH (17:25)
--- NOTE | 2017-02-15 19:39 | NUR ---
PATIENT REPORT GIVEN AT BEDSIDE. PATIENT ENDORSED IN STABLE CONDITION
--- NOTE | 2017-02-15 19:40 | NUR ---
RECEIVED PT FROM MOISES RITTER PRT AAOX3 NON VERBAL ON TRACH TO T PIECE 8 LTS, FIOS 30% NOT SOB NOTED G TUBE FEEDING WELL TOLERATED ZERO RESIDUAL, PICC LINE ON RT UA INFUSING WELL IV FLUIDS, REDNESS ON SACRAL AREA SKIN GRAFT ON LEFT LEFT BRICEÑO CATH DRAINING WELL YELLOW URINE INITIAL ASSESSMENT DONE
[2017-02-15 20:00] VITALS: BP 127/67
[2017-02-15 20:38] LABS: APPEARANCE,URINE CLOUDY (CLEAR); BILIRUBIN,URINE NEGATIVE (NEGATIVE); BLOOD, URINE NEGATIVE (NEGATIVE); COLOR,URINE YELLOW (YELLOW); LEUKOCYTE ESTERASE ,URINE 1+ (NEGATIVE); NITRITE, URINE NEGATIVE (NEGATIVE); PROTEIN,URINE 1+ (NEGATIVE); UGLUCOSE NEGATIVE (NEGATIVE)
[2017-02-15 20:41] LABS: BACTERIA,URINE 1+ /HPF (None Seen); RBC,URINE 0-5 (RARE) /HPF (0-5); SQUAMOUS EPITHELIAL CELL,UR 0-3 (FEW) /LPF (0-3 (FEW)); YEAST,URINE Many /HPF (None Seen)
[2017-02-15] MEDS: PRIMIDONE 50 MG TAB GT SCH (21:09)
--- NOTE | 2017-02-15 21:30 | NUR ---
BLOOD SUGAR TEST 161 COVERAGE WITH 2 UNITS REG INSULIN, PT REPOSITIONED Q2H AND SUCTIONED NECESSARY
[2017-02-16] VITALS: BP 132/77
[2017-02-16] MEDS: HYDROmorphone 1 MG/ML AMP IVP PRN ×6 (00:05→18:57)
--- NOTE | 2017-02-16 00:30 | NUR ---
AFTER PAIN MEDIC GIVEN PT SLEEP QUIET NOT SOB NOTED ON TELEMETRY SR BBB
[2017-02-16] MEDS: ALBUTEROL SULFATE/IPRATROPIU 3 ML SOL IH SCH ×6 (03:19→23:43)
[2017-02-16 04:00] VITALS: BP 138/66
--- NOTE | 2017-02-16 04:00 | NUR ---
pt on close monitoring sponge bath given linen change on tele sr bbb not sob noted one big bm
[2017-02-16] MEDS: GABAPENTIN 300 MG CAP GT SCH ×3 (05:14→20:53)
[2017-02-16] MEDS: PIPER/TAZO 3.375GM/D5W PREMIX 50 ML IV SCH ×3 (05:15→19:00)
[2017-02-16] MEDS: glyBURIDE 5 MG TAB GT SCH ×2 (06:14→17:49)
[2017-02-16] MEDS: BLOOD GLUCOSE MONITORING 1 DEV DEV FS SCH ×4 (06:35→21:06)
[2017-02-16] MEDS: INSULIN LISPRO SLIDING SCALE 100 UNITS/ML VIAL SUBQ PRN ×2 (06:36→21:04)
--- NOTE | 2017-02-16 06:40 | NUR ---
STOMA IS DRAINING CLEAR/YELLOW SECRETIONS. THERE IS NO REDNESS OR BREAKDOWN AROUND STOMA. TRACH IS SECURE AND INNER CANNULA IS PATENT.
--- NOTE | 2017-02-16 06:51 | NUR ---
PT SUCTIONED OBTAINED THICK YELLOW SECRETIONS AIRWAY IS PATENT TRACH IS SECURE. PT IS NOT SOB AND NOT IN RESPIRATORY DISTRESS AT THIS TIME. PT REMAINS ON 30% COOL AEROSOL. WILL CONTINUE TO MONITOR.
--- NOTE | 2017-02-16 07:04 | NUR ---
pt repositioned after pain medic given pt sleep quiet resp therapy assist the pt at this time on tele sr bbb
--- NOTE | 2017-02-16 07:30 | NUR ---
RECEIVED REPORT FROM [facility]. PT IS A/OX4, NONVERBAL, BEDBOUND, PT IS DEAF, USES A WHITE BOARD TO COMMUNICATE, PT HAS TRACH IN PLACE O2 ON 10 L, PICC LINE RIGHT UPPER ARM X 1 LUMEN, PATENT, INTACT, PT HAS REDNESS TO THE SACRAL AREA, G-TUBE IN PLACE, 20ML RESIDUAL, FEEDING RUNNING AT 50ML/HR, BRICEÑO CATHETER IN PLACE, 50ML OF CLEAR YELLOW URINE NOTED IN THE BRICEÑO BAG, NO S/S OF RESPIRATORY DISTRESS OR DISCOMFORT NOTED, CALL LIGHT IS WITHIN REACH, WILL CONTINUE TO MONITOR.
[2017-02-16] MEDS ORDERED: FUROSEMIDE 40 MG/4 ML VIAL IVP SCH (07:36)
[2017-02-16 08:00] VITALS: BP 139/61
[2017-02-16] MEDS: HYDROcodone/APAP 10/325 MG 1 TAB TAB PO PRN (08:29)
--- NOTE | 2017-02-16 08:29 | NUR ---
PT COMPLAINED OF 6/10 PAIN LEVEL, WILL MEDICATE WITH PRN PAIN MEDICATION ORDERED.
[2017-02-16] MEDS: CLOPIDOGREL 75 MG TAB GT SCH (08:35)
[2017-02-16] MEDS: CITALOPRAM 20 MG TAB GT SCH (08:35)
[2017-02-16] MEDS: metFORMIN 850 MG TAB GT SCH ×3 (08:36→17:50)
[2017-02-16] MEDS: FLUCONAZOLE 200 MG/NS PREMIX 100 ML IV SCH (08:36)
[2017-02-16] MEDS: LISINOPRIL 20 MG TAB GT SCH (08:36)
[2017-02-16] MEDS: LACTOBACILLUS RHAMNOSUS GG 1 EACH CAP PO SCH (08:36)
--- NOTE | 2017-02-16 09:30 | NUR ---
PT IS RESTING IN BED, NO S/S OF RESPIRATORY DISTRESS OR DISCOMFORT NOTED, CALL LIGHT WITHIN REACH, WILL CONTINUE TO MONITOR.
--- NOTE | 2017-02-16 09:41 | NUR ---
PARTIAL ECHO COMPLETED. UNABLE TO FINISH FULL STUDY DUE TO PT REFUSING TO CONTINUE WITH THE EXAM. UNABLE TO OBTAIN APICAL/SUBCOSTAL VIEWS. ONLY MANAGED PLAX AND PARTIAL PSAX
[2017-02-16] MEDS ORDERED: ALTEPLASE 2 MG VIAL MC SCH (10:31)
--- NOTE | 2017-02-16 11:30 | NUR ---
PT RESTING IN BED SLEEPING AT THIS TIME, IS AT BEDSIDE, CALL LIGHT WITHIN REACH, WILL CONTINUE TO MONITOR.
[2017-02-16 12:00] VITALS: BP 154/69
--- NOTE | 2017-02-16 12:54 | NUR ---
SS NOTE: PER BHANU FROM [facility] [place] HAVE ANY MALE SUBACUTE BEDS AVAILABLE AT THIS TIME.
--- NOTE | 2017-02-16 13:31 | NUR ---
PT PLACED ON 5L, 30% FIO2 PT IS TOLERATING WELL SPO2 95%. PT IS NOT SOB AND NOT IN RESPIRATORY DISTRESS AT THIS TIME. WILL CONTINUE TO MONITOR.
--- NOTE | 2017-02-16 13:35 | NUR ---
PT RESTING IN BED, ALL NEEDS MET AT THIS TIME, CALL LIGHT IS WITHIN REACH.
--- NOTE | 2017-02-16 14:14 | NUR ---
SS NOTE: PER WENDY FROM [facility] ([phone]), THEY CAN TAKE PT BACK IF PT CONTINUES TO STAY ON 5L OXYGEN. PER REGINALDO FROM [facility] ([phone]), THEY CAN ACCOMMODATE PT IF PT NEEDS MORE THAN 5L IN THEIR SUBACUTE UNIT I SPOKE WITH PT'S , VENUS AND MADE HER AWARE OF THE ABOVE INFORMATION. SHE STATED THAT SHE WILL TOUR [facility] TOMORROW MORNING AND THEN MAKE A DECISION.
--- NOTE | 2017-02-16 14:30 | NUR ---
PT TURNED, GOWNED CHANGED, EZEQUIEL CARE DONE, CHUCKS CHANGED, REDNESS NOTED TO SACRAL AREA, PT TOLERATED WELL.
--- NOTE | 2017-02-16 14:55 | NUR ---
ATTEMPTED TO DO ABG PT REFUSED UNTIL HE RECEIVES HIS PAIN SHOT PT COMMUNICATED BY WRITING. NURSE GALE AWARE. PT WOULD NOT ALLOW PUNCTURE SITE TO BE ASSESSED PT WOULD PULL HIS ARM AWAY.
--- NOTE | 2017-02-16 15:00 | NUR ---
PT STATED 10/10 PAIN PRN PAIN MEDICATION GIVEN.
--- NOTE | 2017-02-16 15:34 | NUR ---
PT RECEIVED PAIN MEDS AND STILL REFUSED ABG. PT THROUGH WRITING COMMUNICATED THAT HE IS LIVING WITH PAIN AND DOES NOT NEED MORE PAIN. PT IS NOT SOB AND NOT IN RESPIRATORY DISTRESS AT THIS TIME.
[2017-02-16 16:00] VITALS: BP 157/69
[2017-02-16] MEDS: Z-GUARD PASTE TP SCH (16:13)
[2017-02-16 16:45] LABS: BASOPHILS # (AUTO) 0.1 K/uL (0.00-0.22); BASOPHILS % (AUTO) 0.5 % (0.0-2.0); EOSINOPHILS # (AUTO) 0.1 K/uL (0-0.4); EOSINOPHILS % (AUTO) 0.8 % (0.0-4.0); HEMATOCRIT 29.4 % (36-52); LYMPHOCYTES # (AUTO) 2.9 K/uL (2.0-11.5); LYMPHOCYTES % (AUTO) 18.4 % (20.5-51.1); MEAN CORPUSCULAR HEMOGLOBIN 25 pg (27-31); MEAN CORPUSCULAR HGB CONC 31 g/dL (33-37); MEAN CORPUSCULAR VOLUME 82 fL (80-94); MONOCYTES # (AUTO) 1.2 K/uL (0.8-1.0); MONOCYTES % (AUTO) 7.7 % (1.7-9.3); NEUTROPHILS # (AUTO) 11.6 K/uL (1.8-7.7); NEUTROPHILS % (AUTO) 72.6 % (42.2-75.2); PLATELET COUNT (AUTO) 404 K/uL (140-450); RED BLOOD CELL COUNT(AUTO) 3.58 MIL/uL (4.20-6.10); RED CELL DISTRIBUTION WIDTH 16.1 % (11.6-13.7); WHITE BLOOD COUNT (AUTO) 15.9 K/uL (4.8-10.8)
--- NOTE | 2017-02-16 16:50 | NUR ---
PT SUCTIONED OBTAINED SMALL AMOUNT OF THICK YELLOW SECRETIONS,AIRWAY IS PATENT TRACH SECURE.
[2017-02-16 17:00] LABS: ANION GAP 9.8 (8-16); CALCIUM 9.5 mg/dL (8.5-10.1); CHLORIDE 106 mmol/L (98-107); CREATININE 0.9 mg/dL (0.6-1.3); GLUCOSE 168 mg/dL (74-106); POTASSIUM 3.8 mmol/L (3.5-5.1); SODIUM SERUM 146 mmol/L (136-145); UREA NITROGEN, BLOOD 37 mg/dL (7-18)
--- NOTE | 2017-02-16 17:00 | NUR ---
PT RESTING IN BED, ORAL CARE GIVEN, BRICEÑO CATHETER EMPTIED, 1000ML URINE OUTPUT, CALL LIGHT WITHIN REACH.
[2017-02-16 17:05] LABS: MAGNESIUM 1.5 mg/dL (1.8-2.4); PHOSPHORUS 2.9 mg/dL (2.5-4.9)
[2017-02-16] MEDS ORDERED: NON ADHERENT DRESSING TP PRN (17:15)
[2017-02-16] MEDS ORDERED: NON ADHERENT DRESSING TP SCH (17:46)
--- NOTE | 2017-02-16 18:57 | NUR ---
PT COMPLAINED OF A 9/10 PAIN, WILL MEDICATE WITH PRN PAIN MEDICATION ORDERED.
--- NOTE | 2017-02-16 19:25 | NUR ---
PT SUCTIONED VIA TRACH FOR SMALL AMOUNT THICK PALE YELLOW SECRETIONS. NO ADVERSE EFFECTS NOTED.
--- NOTE | 2017-02-16 19:35 | NUR ---
RECEIVED REPORT FROM STONE BEASLEY AT BEDSIDE. PT IS NON VERBAL. PT AOX3. PT HAS A WHITE BOARD TO COMMUNICATE BUT PT IS CONFUSED AT TIMES. PT HAS NG TUBE PATENT AND INTACT. PT HAS A TRACHEOSTOMY RECEIVING OXYGEN 10L FIO2 AT 40%, PT 02 SAT AT 95%. PT HAS A BRICEÑO CATHETER IN PLACE. PT HAS A RIGHT UPPER ARM PICC LINE. PT IS BEDBOUND. PT ABLE TO USE CALL LIGHT. PT HAS SACRAL REDNESS. SAFETY/FALL RISK MEASURES IN PLACE. ORIENTED PT TO ROOM AND SURROUNDINGS, WILL CONTINUE TO MONITOR PT. Addendum: 02/16/17 at 5147 by Chary Hernandez RN PT ON G TUBE FEEDING AT 50 ML/HR.
--- NOTE | 2017-02-16 19:40 | NUR ---
ENDORSED PT TO STONE BEAVER. FOR CONTINUITY OF CARE. PT STABLE AT THIS TIME.
[2017-02-16 20:00] VITALS: BP 148/72
--- NOTE | 2017-02-16 20:00 | NUR ---
PT TURNED/REPOSITIONED. PT TOLERATED IT WELL. WILL CONTINUE TO MONITOR PT.
[2017-02-16] MEDS: PRIMIDONE 50 MG TAB GT SCH (20:53)
[2017-02-16] MEDS: LORazepam 0.5 MG TAB PO PRN (20:53)
--- NOTE | 2017-02-16 21:11 | NUR ---
PT TOLERATED 2100 MEDS WELL. WILL CONTINUE TO MONITOR PT.
--- NOTE | 2017-02-16 22:00 | NUR ---
PT TURNED/REPOSITIONED. PT TOLERATED IT WELL. WILL CONTINUE TO MONITOR PT.
[2017-02-17] VITALS: BP 143/75
--- NOTE | 2017-02-17 | NUR ---
PT TURNED/REPOSITIONED WITH HELP OF CNDRAKE WOODWARD AND RAMONE. PT HAD A LARGE BM. PT TOLERATED IT WELL. WILL CONTINUE TO MONITOR PT.
[2017-02-17] MEDS: PIPER/TAZO 3.375GM/D5W PREMIX 50 ML IV SCH ×2 (00:21→05:35)
--- NOTE | 2017-02-17 00:25 | NUR ---
PT COMPLAINING OF A HEADACHE 03/16. VS STABLE, WILL MEDICATE ORDERED.
[2017-02-17] MEDS: HYDROmorphone 1 MG/ML AMP IVP PRN ×3 (00:28→11:56)
[2017-02-17] MEDS: Z-GUARD PASTE TP SCH (00:29)
--- NOTE | 2017-02-17 02:00 | NUR ---
PT TURNED/REPOSITIONED. PT TOLERATED IT WELL. NO SIGNS OF DISTRESS NOTED. WILL CONTINUE TO MONITOR PT.
--- NOTE | 2017-02-17 03:31 | NUR ---
PT COMPLAINING OF PAIN ON HIS HEAD 04/16. VS STABLE, WILL MEDICATE ORDERED.
[2017-02-17] MEDS: ALBUTEROL SULFATE/IPRATROPIU 3 ML SOL IH SCH ×3 (03:40→11:40)
--- NOTE | 2017-02-17 03:47 | NUR ---
REPORT GIVEN TO STONE CASTELLANOS FOR CONTINUITY OF CARE.
--- NOTE | 2017-02-17 03:50 | NUR ---
PT REFUSED TO HAVE TRACH CARE DONE AT THIS TIME. PT SUCTIONED VIA TRACH FOR SMALL AMOUNT THICK CREAMY SECRETIONS. NO ADVERSE EFFECTS NOTED.
[2017-02-17 04:00] VITALS: BP 141/76
--- NOTE | 2017-02-17 04:00 | NUR ---
PT TURNED/REPOSITIONED. PT TOLERATED IT WELL. NO SIGNS OF DISTRESS NOTED. WILL CONTINUE TO MONITOR PT.
[2017-02-17] MEDS: GABAPENTIN 300 MG CAP GT SCH (05:35)
--- NOTE | 2017-02-17 06:00 | NUR ---
PT TURNED/REPOSITIONED. PT TOLERATED IT WELL. NO SIGNS OF DISTRESS NOTED. WILL CONTINUE TO MONITOR PT.
[2017-02-17] MEDS: glyBURIDE 5 MG TAB GT SCH (06:30)
[2017-02-17] MEDS: INSULIN LISPRO SLIDING SCALE 100 UNITS/ML VIAL SUBQ PRN (06:36)
[2017-02-17 06:48] LABS: BASOPHILS % (AUTO) 0.2 % (0.0-2.0); EOSINOPHILS # (AUTO) 0.2 K/uL (0-0.4); EOSINOPHILS % (AUTO) 0.9 % (0.0-4.0); HEMATOCRIT 31.2 % (36-52); LYMPHOCYTES # (AUTO) 3.2 K/uL (2.0-11.5); LYMPHOCYTES % (AUTO) 18.5 % (20.5-51.1); MEAN CORPUSCULAR HEMOGLOBIN 26 pg (27-31); MEAN CORPUSCULAR HGB CONC 32 g/dL (33-37); MEAN CORPUSCULAR VOLUME 81 fL (80-94); MONOCYTES # (AUTO) 1.4 K/uL (0.8-1.0); NEUTROPHILS # (AUTO) 12.6 K/uL (1.8-7.7); NEUTROPHILS % (AUTO) 72.4 % (42.2-75.2); PLATELET COUNT (AUTO) 384 K/uL (140-450); RED BLOOD CELL COUNT(AUTO) 3.86 MIL/uL (4.20-6.10); RED CELL DISTRIBUTION WIDTH 16.2 % (11.6-13.7); WHITE BLOOD COUNT (AUTO) 17.4 K/uL (4.8-10.8)
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
[2017-02-17 06:59] LABS: ANION GAP 10.4 (8-16); CALCIUM 9.2 mg/dL (8.5-10.1); CARBON DIOXIDE 33.1 mmol/L (21-32); CHLORIDE 107 mmol/L (98-107); CREATININE 0.8 mg/dL (0.6-1.3); GLUCOSE 193 mg/dL (74-106); POTASSIUM 3.5 mmol/L (3.5-5.1); SODIUM SERUM 147 mmol/L (136-145); UREA NITROGEN, BLOOD 33 mg/dL (7-18)
--- NOTE | 2017-02-17 07:15 | NUR ---
ENDORSED PLAN OF CARE TO STONE BEASLEY. PT IN STABLE CONDITION.
--- NOTE | 2017-02-17 07:20 | NUR ---
RECEIVED REPORT FROM STONE BEAVER. PT IS A/OX4, NONVERBAL, BEDBOUND, PT IS DEAF, USES A WHITE BOARD TO COMMUNICATE, PT HAS TRACH IN PLACE O2 ON 10 L, PICC LINE RIGHT UPPER ARM X 1 LUMEN, PATENT, INTACT, PT HAS REDNESS TO THE SACRAL AREA, G-TUBE IN PLACE, 10ML RESIDUAL, FEEDING RUNNING AT 50ML/HR, BRICEÑO CATHETER IN PLACE, NO S/S OF RESPIRATORY DISTRESS OR DISCOMFORT NOTED, SAFETY/FALL PRECAUTIONS IN PLACE, CALL LIGHT IS WITHIN REACH, WILL CONTINUE TO MONITOR.
[2017-02-17] MEDS: BLOOD GLUCOSE MONITORING 1 DEV DEV FS SCH (07:30)
[2017-02-17 07:34] LABS: MAGNESIUM 1.5 mg/dL (1.8-2.4); PHOSPHORUS 2.8 mg/dL (2.5-4.9)
[2017-02-17 08:00] VITALS: BP 145/74
[2017-02-17] MEDS ORDERED: Dressing, Gauze TP ×2 (08:49)
[2017-02-17] MEDS ORDERED: IPRA3AMP IH ×2 (08:49)
[2017-02-17] MEDS ORDERED: HUMSLIDE SUBQ (08:49)
[2017-02-17] MEDS ORDERED: ACET-4275 PO (08:49)
[2017-02-17] MEDS ORDERED: HEPA500055 SUBQ (08:49)
[2017-02-17] MEDS ORDERED: BLOO1STR10 FS (08:53)
[2017-02-17] MEDS ORDERED: ATI.5 PO (08:53)
[2017-02-17] MEDS ORDERED: ONDA2SOL45 PO (08:53)
[2017-02-17] MEDS ORDERED: LACT10CA PO (08:53)
[2017-02-17] MEDS ORDERED: ACET-1182 PO (08:53)
[2017-02-17] MEDS ORDERED: ZGUARD TP (08:53)
[2017-02-17] MEDS ORDERED: MEROPENEM 500 MG in NACL 0.9% 50 ML IV SCH (09:00)
--- NOTE | 2017-02-17 09:30 | NUR ---
PT RESTING IN BED AT THIS TIME, CALL LIGHT IS WITHIN REACH, WILL CONTINUE TO MONITOR.
--- NOTE | 2017-02-17 10:14 | NUR ---
SS NOTE: I SPOKE WITH PT'S , VENUS SORIANO TO PT. SHE STATED THAT SHE TOURED [facility] THIS MORNING AND WOULD LIKE PT TO GO THERE UPON DISCHARGE. PER REGINALDO FROM [facility] ([phone]), PT CAN GO TO ROOM [address] [place] LEVY ANYTIME.
[2017-02-17] MEDS: LACTOBACILLUS RHAMNOSUS GG 1 EACH CAP PO SCH (10:18)
[2017-02-17] MEDS: LISINOPRIL 20 MG TAB GT SCH (10:18)
[2017-02-17] MEDS: metFORMIN 850 MG TAB GT SCH (10:18)
[2017-02-17] MEDS: CLOPIDOGREL 75 MG TAB GT SCH (10:19)
[2017-02-17] MEDS: CITALOPRAM 20 MG TAB GT SCH (10:19)
[2017-02-17] MEDS: FLUCONAZOLE 200 MG/NS PREMIX 100 ML IV SCH (10:20)
--- NOTE | 2017-02-17 10:45 | NUR ---
CALLED [facility] AT [phone], I GAVE REPORT TO STONE MCGILL. I LET HIM KNOW PT WAS SCHEDULED TO BE PICKED UP AT 1200 AND WOULD BE GOING TO ROOM 309, BED 1 AND RECEIVING DOCTOR WOULD BE DR. LEVY, I DID GIVE ARTEM THE NUMBER TO THE NURSES STATION IN CASE THEY HAD ANY QUESTIONS. WHO IS AT PATIENT BEDSIDE WAS ALSO INFORMED OF THE TIME THE PATIENT WOULD BE PICKED UP AND [facility].
--- NOTE | 2017-02-17 10:51 | NUR ---
CALLED [facility] AND SPOKE WITH HILARY. SET UP ALS TRANSPORT FOR NOON. FAXED FORM. INFORMED GALE RITTER. DR. JUAREZ INFORMED WHERE PATIENT WILL BE GOING, [facility].
[2017-02-17] MEDS ORDERED: ALBUTEROL SULFATE/IPRATROPIU 3 ML SOL IH ONE (11:30)
--- NOTE | 2017-02-17 11:30 | NUR ---
PT WAS TURNED, ORAL CARE GIVEN, EZEQUIEL CARE GIVEN AND GOWNED WAS CHANGED. PT TOLERATED WELL.
--- NOTE | 2017-02-17 12:30 | NUR ---
DISCHARGED INSTRUCTIONS GIVEN, ID WRIST BAND REMOVED, PT PICKED UP BY [facility] TO BE TRANSFERRED TO [facility], PT DISCHARGED IN STABLE CONDITION VIA [facility].
== END 2017-02-17 12:30 | DRG 177 ==
LOC: MED 16:24 → MTU 18:24
PROVIDERS: ADMIT Family Medicine; ATTEND Family Medicine
DX: J69.0 Pneumonitis due to inhalation of food and vomit (principal); I50.43 Acute on chronic combined systolic (congestive) and diastolic (congestive) heart failure; N17.0 Acute kidney failure with tubular necrosis; J96.21 Acute and chronic respiratory failure with hypoxia; B37.49 Other urogenital candidiasis; D68.69 Other thrombophilia; I25.10 Atherosclerotic heart disease of native coronary artery without angina pectoris; F41.9 Anxiety disorder, unspecified; E87.6 Hypokalemia; E83.42 Hypomagnesemia; E66.9 Obesity, unspecified; I11.0 Hypertensive heart disease with heart failure; I25.5 Ischemic cardiomyopathy; E78.00 Pure hypercholesterolemia, unspecified; E11.65 Type 2 diabetes mellitus with hyperglycemia; G25.0 Essential tremor; E11.40 Type 2 diabetes mellitus with diabetic neuropathy, unspecified; R13.10 Dysphagia, unspecified; Z53.29 Procedure and treatment not carried out because of patient's decision for other reasons; Z95.1 Presence of aortocoronary bypass graft; Z95.0 Presence of cardiac pacemaker; Z87.891 Personal history of nicotine dependence; Z93.1 Gastrostomy status; Z93.0 Tracheostomy status; Z79.899 Other long term (current) drug therapy; Z79.4 Long term (current) use of insulin; Z68.24 Body mass index [BMI] 24.0-24.9, adult; Z92.3 Personal history of irradiation; Z85.51 Personal history of malignant neoplasm of bladder; Z85.22 Personal history of malignant neoplasm of nasal cavities, middle ear, and accessory sinuses
CPT/HCPCS: 36415; 71010; 80048; 81001; 82948; 83036; 83735; 84100; 85025; 85610; 85730; 87040; 87070; 87081; 87086; 87205; 89220; 93005; 94640; 99285; J1170; J1450; J1644; J1815; J1940; J2185; J2270; J2543; J2997; J3475; J3480; J7030; J7060; J7620; Q0092